=== PATIENT | female | born 1990 | race Caucasian/White ===

== ENCOUNTER 2016-09-08 13:56 | Emergency (ER) | payer MEDICAID ==
[~2016-09-08] VITALS: Ht 170.2 cm; Wt 85.0 kg
[~2016-09-08 13:56] MED LIST: LAMO100 PO
[2016-09-08 13:57] VITALS: BP 157/89; PULSE 90; RESP 15; TEMP 98.2; O2SAT 98
--- NOTE | 2016-09-08 14:08 | PD ---
Physical Exam Date Seen by Provider: Sep 08, 2016 Time Seen by Provider: 14:05 Narrative 26 YOWF . 6-8 WEEKS PREG. NOW VAG BLEEDING TODAY. NO N/V/ABD PAIN OR BACK PAIN VSS AWAITING BED PLACEMENT Data Data Last Documented VS Vital Signs Date Time Temp Pulse Resp B/P Pulse Ox O2 Delivery O2 Flow Rate FiO2 09/08/16 13:57 98.2 90 15 157/89 98 MDM Medical Record Reviewed: Yes Supervised Visit with PAULINA: Yes David Ramos Sep 08, 2016 14:08
--- NOTE | 2016-09-08 14:35 | PD ---
HPI . 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 She states she had some mild low back pain yesterday. Otherwise she has had no pain associated with the bleeding. Bleeding has been been scant. Last sexual intercourse was a couple days ago. She has not yet had care. She is a but got all of her care for her previous in another city. She is unaware of her blood type. She is also not able to tell us whether or not she had to have any shots with her previous . [facility] Past Medical History Diminished Hearing: No Seizures: Yes ?: LMP: 07/2016 : 1 Para: 1 Social History Alcohol Use: Yes (OCCASIONAL) Tobacco Use: Yes (1/2 PPD) Substance Use: No Allergies-Medications (Allergen,Severity, Reaction): Coded Allergies: Codeine (Unverified Adverse Reaction, Intermediate, Nausea/Vomiting, ) Reported Meds & Prescriptions Reported Meds & Active Scripts Active Lamictal (Lamotrigine) 100 Mg Tab 100 Mg PO DIRECTED Take 1 po in morning and 1 and 1/2 po at night Reported Lamictal (Lamotrigine) 100 Mg Tab 100 Mg PO DAILY Review of Systems Except as stated in HPI: all other systems reviewed are Neg General / Constitutional: No: Fever, Chills Genitourinary: Positive: Vaginal Bleeding, No: Urgency, Frequency, Dysuria, Pelvic Pain, Dyspareunia, Discharge Physical Exam Narrative GENERAL: Awake and alert and in no acute distress. SKIN: Warm and dry. CARDIOVASCULAR: Regular rate and rhythm. RESPIRATORY: No accessory muscle use. : Normal female. Scant brown blood in the vaginal vault. Os is closed. Bimanual exam is nontender. MUSCULOSKELETAL: No obvious deformities. No edema. NEUROLOGICAL: Awake and alert. No obvious cranial nerve deficits. Motor grossly within normal limits. Normal speech. PSYCHIATRIC: Appropriate mood and affect; insight and judgment normal. Data Data Last Documented VS Vital Signs Date Time Temp Pulse Resp B/P Pulse Ox O2 Delivery O2 Flow Rate FiO2 09/08/16 19:20 65 16 107/67 96 09/08/16 13:57 98.2 Orders Beta Hcg (Quant/Titer) (09/08/16 14:24) Gc And Chlamydia Pcr (09/08/16 14:24) Type And Screen (09/08/16 14:24) Wet Prep Profile (09/08/16 14:24) Ed Poc Ultrasound (09/08/16 14:24) Us Pelvis (Ques Pr/Ect)W Trans (09/08/16 14:50) Labs Laboratory Tests Test 09/08/16 14:35 Clue Cells (Wet Prep) NONE SEEN Vaginal Trichomonas (Wet Prep) NONE SEEN Vaginal Yeast (Wet Prep) NONE SEEN Human Chorionic Gonadotropin, 9850 MIU/ML Quant Chlamydia trachomatis DNA NOT DETECTED (PCR) Neisseria gonorrhoeae DNA NOT DETECTED (PCR) Blood Type O POSITIVE Antibody Screen NEGATIVE Blood Bank Comment MDM Medical Decision Making Medical Screen Exam Complete: Yes Emergency Medical Condition: Yes Differential Diagnosis Differential diagnosis of vaginal bleeding includes but is not limited to dysfunctional uterine bleeding, normal menstrual cycle, ectopic , spontaneous AB, PID. Narrative Course Patient presents for evaluation of vaginal bleeding in early . Exam is pretty benign. She has scant blood in the vaginal vault. Blood type is O+. Wet prep is negative. US CONCLUSION: 1. Intrauterine with gestational age of about 5 weeks one day by gestational sac size. No heart tones identified likely due to early dating. Small subchorionic hemorrhage adjacent to gestational sac. 2. Left ovarian cysts including probable corpus luteum cyst. Procedures Procedure Narrative Emergency Department Pelvic ultrasound was performed with patient consent. The curvilinear probe was used in the transverse and sagittal views within the suprapubic region revealing positive intrauterine . Unable to see heart activity. Diagnosis Primary Impression: Bleeding in early Patient Instructions: General Instructions, Threatened Miscarriage (DC) Disposition: 01 DISCHARGE HOME Condition: Stable Viviane Berry MD Sep 08, 2016 14:35
[2016-09-08 15:44] LABS: BETA HCG QUANT 9850 MIU/ML (0-5)
[2016-09-08 19:20] VITALS: BP 107/67; PULSE 65; RESP 16; O2SAT 96
[2016-09-08 19:25] LABS: CHLAMYDIA PCR NOT DETECTED (NOT DETECT); NEISSERIA PCR NOT DETECTED (NOT DETECT)
--- NOTE | 2016-09-08 19:49 | RADRPT ---
EXAM DATE/TIME: 09/08/2016 17:44 [facility] COMPARISON: No previous studies available for comparison. INDICATIONS : Bleeding with . LAB(S): [facility] MEDICAL HISTORY : . Seizures. SURGICAL HISTORY : None. ENCOUNTER: Initial ACUITY: 1 day PAIN SCORE: 0/10 LOCATION: Bilateral pelvis MEASUREMENTS: UTERUS: 10.1 x 6.4 x 4.7 cm ENDOMETRIAL STRIPE: 7 mm RIGHT OVARY: 2.6 x 1.9 x 1.5 cm LEFT OVARY: 3.5 x 3.3 x 2.9 cm FREE FLUID: No CROWN RUMP LENGTH: 0.4 cm = WKS DAYS FHR: Non visualized. BPM FINDINGS: Gestational sac measurements are characteristic of a gestational age of approximately 5 weeks one day . There is a small complex area adjacent to the gestational sac probably representing a subchorionic hemorrhage measuring about 1.2 x 1.1 x 0.5 cm. The yolk sac is present. 4 mm pole identified. N o free fluid. Complex 2.9 cm left ovarian cyst present with additional 2 cm left ovarian cyst. Right ovary unremark able. CONCLUSION: 1. Intrauterine with gestational age of about 5 weeks one day by gestational sac size. No f etal heart tones identified likely due to early dating. Small subchorionic hemorrhage adjacent to ges tational sac. 2. Left ovarian cysts including probable corpus luteum cyst. David Mayberry MD on September 08, 2016 at 19:43 Board Certified Radiologist. This report was verified electronically.
== END 2016-09-08 20:17 | disposition home or self-care (01) ==
LOC: NEPD 13:56
DX: O46.91 Antepartum hemorrhage, unspecified, first trimester (principal); N83.202 Unspecified ovarian cyst, left side; M54.5 Low back pain; R56.9 Unspecified convulsions; O99.331 Smoking (tobacco) complicating pregnancy, first trimester; Z79.899 Other long term (current) drug therapy; Z3A.01 Less than 8 weeks gestation of pregnancy
CPT/HCPCS: 76700; 76817; 84702; 86850; 86900; 86901; 87210; 87491; 87591